=== PATIENT | female | born 1975 | race Caucasian/White ===

== ENCOUNTER 2016-09-02 05:23 | Emergency (ER) | payer OTHER ==
[~2016-09-02] VITALS: Ht 177.8 cm; Wt 117.9 kg
[~2016-09-02 05:23] MED LIST: ANAPROX DS550 MG PO; BENADRYL ALLERG25 M5 PO; CIPRO500 MG PO; CLARITIN10 MG PO; CLINDAMYCIN HC300 MG PO; FLONASE ALLERG9.9 ML NAS; IBU-8800 MG PO; MOTRIN800 MG PO; NASONEX0.05 MG/AC NS; NORFLEX100 MG PO; PREDNICOT20 MG PO; PREDNISONE10 MG PO; ROBITUSSIN AC 110 ML PO; VICODIN 5/500 505 MG PO; ZANTAC 150150 MG PO; ZITHROMAX Z PA250 MG PO; ZITHROMAX250 MG PO
[2016-09-02] MEDS ORDERED: Motrin,Rufen800 MG PO (05:31)
[2016-09-02] MEDS ORDERED: CYCLOBENZAPRINE10 MG PO (05:31)
[2016-09-02] MEDS ORDERED: VALIUM5 MG PO (05:39)
[2016-09-02] MEDS ORDERED: PREDNISONE50 MG PO (05:39)
[2016-09-02] MEDS ORDERED: NAPROSYN500 MG PO (05:39)
== END 2016-09-02 06:10 | disposition home or self-care (01) ==
LOC: ED 05:23
DX: M54.41 Lumbago with sciatica, right side (principal)

== ENCOUNTER 2017-04-03 18:51 | Emergency (ER) | payer OTHER ==
[~2017-04-03] VITALS: Ht 177.8 cm; Wt 122.5 kg
[~2017-04-03 18:51] MED LIST changes: +CYCLOBENZAPRINE10 MG PO; +Motrin,Rufen800 MG PO; +NAPROSYN500 MG PO; +PREDNISONE50 MG PO; +VALIUM5 MG PO
[2017-04-03 19:06] VITALS: BP 153/85
== END 2017-04-03 21:04 | disposition home or self-care (01) ==
LOC: ED 18:51
DX: M79.605 Pain in left leg (principal); R60.0 Localized edema; F17.200 Nicotine dependence, unspecified, uncomplicated

== ENCOUNTER 2017-11-11 21:56 | Emergency (ER) | payer SELFPAY ==
[~2017-11-11] VITALS: Ht 152.4 cm; Wt 116.1 kg
[2017-11-11 21:58] VITALS: BP 143/71
[2017-11-11] MEDS ORDERED: ALLEGRA-D 24 H1 EACH PO (22:22)
[2017-11-11] MEDS ORDERED: AUGMENTIN 875875 MG PO (22:22)
[2017-11-11] MEDS ORDERED: FLONASE ALLERG9.9 ML NAS (22:22)
== END 2017-11-11 22:28 | disposition home or self-care (01) ==
LOC: ED 21:56
DX: J01.00 Acute maxillary sinusitis, unspecified (principal); F17.200 Nicotine dependence, unspecified, uncomplicated

== ENCOUNTER 2018-07-09 09:47 | Emergency (ER) | payer OTHER ==
[~2018-07-09] VITALS: Ht 177.8 cm; Wt 101.2 kg
[~2018-07-09 09:47] MED LIST changes: +ALLEGRA-D 24 H1 EACH PO; +AUGMENTIN 875875 MG PO
[2018-07-09 09:48] VITALS: BP 128/69
[2018-07-09] MEDS ORDERED: ZYRTEC10 MG PO (10:10)
[2018-07-09] MEDS ORDERED: FLONASE ALLERG9.9 ML NAS (10:10)
[2018-07-09] MEDS ORDERED: AMOXICILLIN500 M2 PO (10:10)
== END 2018-07-09 10:18 | disposition home or self-care (01) ==
LOC: ED 09:47
DX: J01.90 Acute sinusitis, unspecified (principal)

== ENCOUNTER 2019-01-17 09:15 | Emergency (ER) | payer OTHER ==
[~2019-01-17] VITALS: Ht 175.2 cm; Wt 108.9 kg
--- NOTE | ~2019-01-17 | EKG ---
[place], [place] ELECTROCARDIOGRAM REPORT NAME: SHIELA BLOOM UNIT #: [id number] ROOM: DOCTOR: EPIPHANY DRAFT REPORT BIRTHDATE: [birth year] [facility] Test Date: 2019-01-17 Test Time: 09:21:20 Pat Name: SHIELA BLOOM Department: Room: Gender: F Cosmetologist Apprentice: : 1975 Requested By: CHELSI SAENZ Order Number: [id number] Reading MD: David Gipson MD Measurements Intervals [place] Rate: 71 P: 50 [place]: 176 QRS: 65 QRSD: 97 T: 44 QT: 405 QTc: 441 Interpretive Statements Sinus rhythm Probable left atrial enlargement ST elev, probable normal early repol pattern No previous ECG available for comparison Electronically Signed On 01-17-2019 11:23:55 PDT by David Gipson MD CM:EKGRPT:ELECTROCARDIOGRAM REPORT [id number] CHELSI BROOKS DRAFT REPORT CHELSI SAENZ DO
[~2019-01-17 09:15] MED LIST changes: +AMOXICILLIN500 M2 PO; +ZYRTEC10 MG PO
[2019-01-17 09:34] LABS: BASO % 0.4 % (0.0-1.0); EOS # 0.4 10*3/uL (0.0-0.4); EOS % 3.7 % (1.0-4.0); HEMATOCRIT 44.7 % (37.0-47.0); HEMOGLOBIN 15.2 g/dl (12.0-16.0); LYMPH # 2.8 10*3/uL (1.3-4.4); LYMPH % 29.7 % (27.0-41.0); MEAN CELL VOLUME 99.1 fl (81.0-99.0); MEAN CORPUSCULAR HGB 33.7 pg (27.0-31.0); MEAN PLATELET VOLUME 9.2 fl (9.6-12.3); MONO # 0.7 10*3/uL (0.1-1.0); MONO % 7.1 % (3.0-9.0); NEUT # 5.6 10*3/uL (2.3-7.9); NEUT % 58.8 % (47.0-73.0); PLATELET COUNT AUTOMATED 212 10*3/uL (130-400); RED BLOOD COUNT 4.51 10*6/uL (4.10-5.10); RED CELL DISTRI WIDTH 12.1 % (0-14.5); WHITE BLOOD COUNT 9.5 10*3/uL (4.8-10.8)
[2019-01-17 09:46] LABS: ACT PARTIAL THROMBO TIME 27.6 SECONDS (20.0-32.1); INTERNATIONAL NORM RATIO 0.9 (2.0-3.5)
[2019-01-17 09:51] LABS: ALBUMIN 3.3 gm/dl (3.1-4.5); ALKALINE PHOSPHATASE 62 U/L (45-117); BUN 9 mg/dl (7-24); CHLORIDE 107 mmol/L (98-107); CREATININE 0.69 mg/dL (0.55-1.02); POTASSIUM 3.9 mmol/L (3.5-5.1); SGOT/AST 8 IU/L (3-35); SGPT/ALT 19 U/L (12-78); SODIUM 137 mmol/L (136-145)
[2019-01-17 09:52] LABS: TROPONIN I < 0.015 ng/ml (<0.045)
[2019-01-17] MEDS ORDERED: IBUPROFEN600 MG PO (10:35)
[2019-01-17 10:40] VITALS: BP 148/74
== END 2019-01-17 10:43 | disposition home or self-care (01) ==
LOC: ED 09:15
PROVIDERS: Emergency Medicine
DX: M79.18 Myalgia, other site (principal); R07.89 Other chest pain; M54.6 Pain in thoracic spine; Z79.2 Long term (current) use of antibiotics; Z79.899 Other long term (current) drug therapy; X50.0XXA Overexertion from strenuous movement or load, initial encounter; Y93.89 Activity, other specified; Y92.69 Other specified industrial and construction area as the place of occurrence of the external cause; Y99.8 Other external cause status

== ENCOUNTER → 2019-02-12 | Outpatient (CLI) | payer OTHER ==
[~2019-02-12] MED LIST changes: +IBUPROFEN600 MG PO
== END | disposition home or self-care (01) ==
LOC: MAMMO 02-05 08:40
DX: Z12.31 Encounter for screening mammogram for malignant neoplasm of breast (principal)

== ENCOUNTER 2019-07-24 19:57 | Emergency (ER) | payer OTHER ==
[~2019-07-24] VITALS: Ht 177.8 cm; Wt 104.3 kg
[2019-07-24 20:02] VITALS: BP 139/76
== END 2019-07-24 22:19 | disposition home or self-care (01) ==
LOC: ED 19:57
DX: M79.605 Pain in left leg (principal); R60.0 Localized edema; Z79.2 Long term (current) use of antibiotics; Z79.899 Other long term (current) drug therapy

== ENCOUNTER → 2019-09-03 | Outpatient (CLI) | payer OTHER | END | disposition home or self-care (01) | LOC: CT 08-22 09:00 | DX: M79.89 Other specified soft tissue disorders (principal); R60.0 Localized edema; K57.30 Diverticulosis of large intestine without perforation or abscess without bleeding ==

== ENCOUNTER → 2019-12-12 | Outpatient (CLI) | payer OTHER | END | disposition home or self-care (01) | LOC: RAD 10:54 | DX: M79.672 Pain in left foot (principal) ==

== ENCOUNTER 2020-11-19 07:47 | Emergency (ER) | payer OTHER ==
[~2020-11-19] VITALS: Ht 177.8 cm; Wt 122.5 kg
[2020-11-19 07:54] VITALS: BP 116/59
[2020-11-19 08:37] LABS: BASO % 0.3 % (0.0-1.0); EOS # 0.3 10*3/uL (0.0-0.4); EOS % 1.8 % (1.0-4.0); HEMATOCRIT 42.9 % (37.0-47.0); LYMPH # 2.8 10*3/uL (1.3-4.4); LYMPH % 20.3 % (27.0-41.0); MEAN CELL VOLUME 97.9 fl (81.0-99.0); MEAN CORPUSCULAR HGB 33.1 pg (27.0-31.0); MEAN CORPUSCULAR HGB CONC 33.8 g/dl (33.0-37.0); MEAN PLATELET VOLUME 8.8 fl (9.6-12.3); MONO # 1.3 10*3/uL (0.1-1.0); MONO % 9.3 % (3.0-9.0); NEUT # 9.4 10*3/uL (2.3-7.9); NEUT % 67.9 % (47.0-73.0); PLATELET COUNT AUTOMATED 226 10*3/uL (130-400); RED BLOOD COUNT 4.38 10*6/uL (4.10-5.10); RED CELL DISTRI WIDTH 11.9 % (0-14.5); WHITE BLOOD COUNT 13.9 10*3/uL (4.8-10.8)
[2020-11-19 08:50] LABS: ALBUMIN 3.2 gm/dl (3.1-4.5); ALKALINE PHOSPHATASE 65 U/L (45-117); BUN 6 mg/dl (7-24); CHLORIDE 107 mmol/L (98-107); CREATININE 0.54 mg/dL (0.55-1.02); POTASSIUM 3.8 mmol/L (3.5-5.1); SGOT/AST 9 IU/L (3-35); SGPT/ALT 21 U/L (12-78); SODIUM 138 mmol/L (136-145); TOTAL PROTEIN 7.1 gm/dL (6.4-8.2)
[2020-11-19] MEDS ORDERED: FLAGYL500 MG PO (09:17)
[2020-11-19] MEDS ORDERED: LEVOFLOXACIN750 M2 PO (09:17)
== END 2020-11-19 09:20 | disposition home or self-care (01) ==
LOC: ED 07:47
PROVIDERS: Internal Medicine
DX: K52.9 Noninfective gastroenteritis and colitis, unspecified (principal); Z79.899 Other long term (current) drug therapy; Z98.890 Other specified postprocedural states

== ENCOUNTER 2021-12-22 16:01 | Emergency (ER) | payer OTHER ==
[~2021-12-22] VITALS: Ht 175.2 cm; Wt 127.0 kg
[~2021-12-22 16:01] MED LIST changes: +FLAGYL500 MG PO; +LEVOFLOXACIN750 M2 PO
[2021-12-22 16:14] VITALS: BP 180/122
[2021-12-22] MEDS ORDERED: DOXYCYCLINE HY100 M3 PO (16:39)
== END 2021-12-22 16:51 | disposition home or self-care (01) ==
LOC: ED 16:01
DX: A69.20 Lyme disease, unspecified (principal); Z79.899 Other long term (current) drug therapy; Z79.2 Long term (current) use of antibiotics

== ENCOUNTER 2024-09-10 06:16 | Emergency (ER) | payer OTHER ==
[~2024-09-10] VITALS: Ht 175.2 cm; Wt 131.5 kg
[~2024-09-10 06:16] MED LIST changes: +DOXYCYCLINE HY100 M3 PO
[2024-09-10] MEDS ORDERED: Labetalol Hydrochloride 20 MG/4 ML SYR IV ONE ×2 (06:45→07:40)
[2024-09-10 07:05] LABS: BASO # 0.1 10*3/uL (0.0-0.1); BASO % 0.5 % (0.0-1.0); EOS # 0.2 10*3/uL (0.0-0.4); EOS % 1.9 % (1.0-4.0); HEMATOCRIT 48.6 % (37.0-47.0); MEAN CORPUSCULAR HGB 32.7 pg (27.0-31.0); MEAN CORPUSCULAR HGB CONC 33.7 g/dl (33.0-37.0); MEAN PLATELET VOLUME 8.8 fl (9.6-12.3); MONO # 0.8 10*3/uL (0.1-1.0); MONO % 7.7 % (3.0-9.0); NEUT # 7.1 10*3/uL (2.3-7.9); NEUT % 66.5 % (47.0-73.0); PLATELET COUNT AUTOMATED 208 10*3/uL (130-400); RED BLOOD COUNT 5.01 10*6/uL (4.10-5.10); RED CELL DISTRI WIDTH 11.8 % (0-14.5); WHITE BLOOD COUNT 10.7 10*3/uL (4.8-10.8)
[2024-09-10 07:19] LABS: BUN 10 mg/dl (9-23); CHLORIDE 107 mmol/L (98-107); POTASSIUM 3.9 mmol/L (3.4-5.1)
[2024-09-10] MEDS ORDERED: amLODIPine besylate 10 MG TAB PO ONE (07:40)
[2024-09-10] MEDS ORDERED: NORVASC10 MG PO (07:40)
[2024-09-10 07:52] VITALS: BP 209/91
== END 2024-09-10 08:18 | disposition home or self-care (01) ==
LOC: ED 06:16
PROVIDERS: Emergency Medicine
DX: I16.1 Hypertensive emergency (principal); R51.9 Headache, unspecified; Z79.899 Other long term (current) drug therapy